=== PATIENT | male | born 1995 ===

== ENCOUNTER 2017-06-12 20:00 | Emergency (ER) | payer SELFPAY ==
[2017-06-12 20:11] VITALS: TEMP 98
[2017-06-12] MEDS ORDERED: Lidocaine 2% Inj (20ml) INFIL STA (20:58)
[2017-06-12] MEDS ORDERED: Tdap Vaccine 0.5 ml Vial (10-64 yrs) IM ONE ×2 (20:58→21:04)
[2017-06-12] MEDS ORDERED: Lidocaine 2% MPF (5 ml) Inj ONE (21:04)
[2017-06-12] MEDS ORDERED: Bacitracin 500 Units/gm Oint Foilpak UD ONE (23:03)
[2017-06-12] MEDS ORDERED: Piperacillin/Tazobact 3.375 gm 100 ML IV STA (23:29)
--- NOTE | 2017-06-12 23:40 | C.PDOC ---
History Of Present Illness 21 year old male presents to the ED for evaluation of laceration and injury sustained to his right 3rd and 4th fingers. Patient reports that today while at work patient's fingers got slammed by a truck's door. Patient denies any tetanus , accident occurred approximately 1 hour prior to arrival. Patient denies any weakness, numbness, headache, head injury. Time Seen by Provider: 06/12/17 20:20 Chief Complaint (Nursing): Upper Extremity Problem/Injury History Per: Patient History/Exam Limitations: no limitations Onset/Duration Of Symptoms: Hrs Current Symptoms Are (Timing): Still Present Quality: "Pain" Exacerbating Factor(s): Movement Recent travel outside of the [place]: No Additional History Per: Patient Past Medical History Reviewed: Historical Data, Nursing Documentation, Vital Signs Vital Signs: Last Vital Signs Temp 98 F 06/13/17 00:05 Pulse 66 06/13/17 00:05 Resp 18 06/13/17 00:05 BP 120/78 06/13/17 00:05 Pulse Ox 98 06/13/17 00:49 - Medical History PMH: No Chronic Diseases Surgical History: No Surg Hx Family History: States: Unknown Family Hx - Social History Hx Alcohol Use: No Hx Substance Use: No - Immunization History Hx Tetanus Toxoid Vaccination: Yes Hx Influenza Vaccination: No Hx Pneumococcal Vaccination: No Review Of Systems Constitutional: Negative for: Fever, Chills Cardiovascular: Negative for: Chest Pain Respiratory: Negative for: Shortness of Breath Gastrointestinal: Negative for: Vomiting Musculoskeletal: Positive for: Hand Pain Skin: Positive for: Bruising. Negative for: Rash Neurological: Negative for: Weakness, Numbness Physical Exam - Physical Exam Appears: Non-toxic, No Acute Distress Skin: Normal Color, Warm, Dry Head: Atraumatic, Normacephalic Eye(s): bilateral: Normal Inspection Nose: No Discharge Oral Mucosa: Moist Neck: Normal ROM, Supple Extremity: Normal ROM, Tenderness (right 3rd and 4th fingers), Capillary Refill (< 2 seconds), Swelling (right 3rd and 4th fingers), Other (right 3rd finger 100 % subungal hematoma with nailbed laceration of 2.5 cm. right 4th finger 100% subungal hematoma with nailbed laceration of 2 cm.) Pulses: Left Radial: Normal, Right Radial: Normal Neurological/Psych: Oriented x3, Normal Speech, Normal Motor, Normal Sensation Gait: Steady ED Course And Treatment O2 Sat by Pulse Oximetry: 98 (ON RA) Pulse Ox Interpretation: Normal - Other Rad Right hand X-Ray X-Ray: Interpreted by Me, Viewed By Me Interpretation: Positive open fracture on right 3rd and 4th finger distal phalanx Laceration - Laceration Repair right 3rd finger Wound Length (In cm): 2.5 Description Of Wound: Linear Wound Cleansed With: Betadine, Sterile Saline (1,000 cc pressurized) Anesthesia: Lidocaine 2% (12 cc) Wound Examination: Irrigated With Saline, No FB With Wound Exploration, No Tendon Injury With Wound Exploration Wound Debridement/Revision: Wound Debrided Wound Closure: Suture (X3) Suture Technique And Material Used: Nylon (4-o) Wound Complexity: Simple right 4th finger Wound Length (In cm): 2 Description Of Wound: Linear Wound Cleansed With: Betadine, Sterile Saline (1,000 pressurized) Wound Examination: Irrigated With Saline, No FB With Wound Exploration, No Tendon Injury With Wound Exploration Wound Debridement/Revision: Wound Debrided Wound Closure: Suture (X4) Suture Technique And Material Used: Nylon (4-0) Wound Complexity: Simple Medical Decision Making Medical Decision Making: Plan: * tetanus UTD * keflex 500 mg po * lidocaine 2% * Zosyn * Right hand X-Ray Wounds were irrigated with 1,000 cc of pressurized saline with betadine mix. Nails in right 3rd and 4th fingers were removed with cuticle and proximal fold still intact in order to access the nail bed laceration. Digital block performed by LOUIS Hernandes using 12 cc of lidocaine 2% with no epi on right 3rd and 4th fingers. Xeroform dressing was applied. Dr. Wilburn hand surgeon communication skills instructor was contacted and made aware of the case. Disposition - Disposition Referrals: Juana Montejo MD [Staff Provider] - Disposition: HOME/ ROUTINE Disposition Time: 23:57 Condition: GOOD Additional Instructions: Follow up with the Hand surgeon Dr. Montejo in 1-2 days. Return if worsened. Prescriptions: Acetaminophen [Tylenol] 325 mg PO Q6 PRN #30 tab PRN Reason: Pain, Mild (1-3) Cephalexin [Keflex] 500 mg PO BID #19 capsule Sulfamethoxazole/Trimethoprim [Bactrim DS 800 mg-160 mg] 1 tab PO BID #19 tab Instructions: Finger Fracture (DC) Forms: [facility] (Serbian), Work Excuse - Clinical Impression Clinical Impression: Open fracture of phalanx of right middle finger, Open fracture of phalanx of right ring finger - PA / AUTOMATION ENGINEERING MANAGER / Resident Statement MD/DO has reviewed & agrees with the documentation as recorded. - Scribe Statement The provider has reviewed the documentation as recorded by the Scribe Wander Diego All medical record entries made by the Scribe were at my direction and personally dictated by me. I have reviewed the chart and agree that the record accurately reflects my personal performance of the history, physical exam, medical decision making, and the department course for this patient. I have also personally directed, reviewed, and agree with the discharge instructions and disposition.
[2017-06-12] MEDS ORDERED: Piperacill/Tazo 3.375gm in Dex 3.375 GM/50 ML BAG IVPB ONE (23:45)
[2017-06-13 00:06] VITALS: BP 120/78; PULSE 66; RESP 18
[2017-06-13 00:09] VITALS: O2SAT 98
--- NOTE | 2017-06-13 09:22 | RAD ---
PROCEDURE: Right Hand Radiographs. HISTORY: injury to the 3rd and 4th finger COMPARISON: None. FINDINGS: BONES: Comminuted fractures of the distal aspect of the distal 3rd and 4th phalanges. JOINTS: Unremarkable. SOFT TISSUES: Regional soft tissue swelling. OTHER FINDINGS: None. IMPRESSION: Comminuted minimally displaced fractures of the distal aspect of the distal 3rd and 4th phalanges.
== END 2017-06-13 00:23 | disposition home or self-care (01) ==
LOC: C.ER 20:00
DX: S62.632B Displaced fracture of distal phalanx of right middle finger, initial encounter for open fracture (principal); S62.634B Displaced fracture of distal phalanx of right ring finger, initial encounter for open fracture; W22.8XXA Striking against or struck by other objects, initial encounter; Y92.89 Other specified places as the place of occurrence of the external cause; Y99.0 Civilian activity done for income or pay
CPT/HCPCS: 12002; 73130; 90471; 90715; 96365; 99284; J2543